=== PATIENT | male | born 1950 | race Caucasian/White ===

== ENCOUNTER → 2021-09-19 | Outpatient (CLI) | payer MEDICARE, BC ==
--- NOTE | 2021-09-19 10:43 | KCIC ---
EXAMINATION: Thyroid sonogram. INDICATION: Neck mass. Thyroiditis. COMPARISON: None. Technique: Real-time grayscale and color Doppler imaging of the thyroid gland was performed per eun col. Findings: The right thyroid lobe measures: 5.6 x 2.1 x 1.8 cm. The left thyroid lobe measures: 6.1 x 2.6 x 2.2 cm. The isthmus measures: 7.8 mm. The thyroid parenchyma is diffusely heterogeneous and there are multiple thyroid nodules. Nodule #1: Maximum size: 2.0 cm. Location: Mid inferior left thyroid lobe. Composition: Solid or almost completely solid (2) Echogenicity: Hypoechoic (2 points) Shape: Vkerb-qpab-sznl (0 points) Margins: Ill-defined (0 points) Echogenic foci: None or large comet-tail artifacts (0 points) ACR TI-RADS total points: 4. ACR TI-RADS risk category: TR4 (4-6 points) - Moderately suspicious. FNA if ?1.5 cm. Follow if ?1 cm. Nodule #2: Maximum size: 1.5 cm. Location: Inferior left thyroid lobe. Composition: Solid or almost completely solid (2) Echogenicity: Hypoechoic (2 points) Shape: Rxrcf-yxed-abrs (0 points) Margins: Ill-defined (0 points) Echogenic foci: None or large comet-tail artifacts (0 points) ACR TI-RADS total points: 4. ACR TI-RADS risk category: TR4 (4-6 points) - Moderately suspicious. FNA if ?1.5 cm. Follow if ?1 cm. Nodule #3: Maximum size: 0.9 cm. Location: Inferior left thyroid lobe. Composition: Cystic/almost completely cystic (0). Echogenicity: Very hypoechoic (3 points) Shape: Hppqi-zvyv-sify (0 points) Margins: Smooth (0 points) Echogenic foci: None or large comet-tail artifacts (0 points) ACR TI-RADS total points: 3. ACR TI-RADS risk category: TR3 (3 points) - Mildly suspicious. FNA if ?2.5 cm. Follow if ?1.5 cm. Nodule #4: Maximum size: 0.7 cm. Location: Upper mid right thyroid lobe. Composition: Solid or almost completely solid (2) Echogenicity: Very hypoechoic (3 points) Shape: Wsauf-gsab-qlfu (0 points) Margins: Smooth (0 points) Echogenic foci: None or large comet-tail artifacts (0 points) ACR TI-RADS total points: 5. ACR TI-RADS risk category: TR4 (4-6 points) - Moderately suspicious. FNA if ?1.5 cm. Follow if ?1 cm. Nodule #5: Maximum size: 0.6 cm. Location: Inferior right thyroid lobe. Composition: Solid or almost completely solid (2) Echogenicity: Very hypoechoic (3 points) Shape: Reqby-eter-ldey (0 points) Margins: Smooth (0 points) Echogenic foci: None or large comet-tail artifacts (0 points) ACR TI-RADS total points: 5. ACR TI-RADS risk category: TR4 (4-6 points) - Moderately suspicious. FNA if ?1.5 cm. Follow if ?1 cm. IMPRESSION: Heterogeneous enlarged thyroid containing multiple nodules, described in detail above. F ine needle aspiration of the TI-RADS Category 4 nodules measuring 2.0 cm and 1.5 cm within the left t hyroid lobe is recommended. The remainder of the nodules are not within limits in size for aspiration or routine follow-up. ACR TI-RADS recommendations TR5 (?7 points) - FNA if ? 1cm, follow-up if 0.5 - 0.9 cm every year for 5 years TR4 (4-6 points) - FNA if ? 1.5cm, follow-up if 1 - 1.4 cm in 1, 2, 3 and 5 years TR3 (3 points)- FNA if ? 2.5cm, follow-up if 1.5 - 2.4 cm in 1, 3 and 5 years TR2 (2 points) & TR1 (0 points) - No FNA or follow-up *Decision to biopsy should include other considerations such as patient demographics and relevant cli nical information. Reference: TIRADS 2017 J Am Nanda Radiol 2017;[id number] Electronically signed by: Kristin Dan MD (09/19/2021 10:40 AM) [id number]
== END ==
LOC: KCIC US 08:57
PROVIDERS: ATTEND Internal Medicine
DX: E04.2 Nontoxic multinodular goiter (principal); Z86.39 Personal history of other endocrine, nutritional and metabolic disease
CPT/HCPCS: 76536